=== PATIENT | male | born 1965 | race Caucasian/White ===

== ENCOUNTER 2016-04-04 23:31 | Emergency (ER) | payer MEDICARE, OTHER ==
[~2016-04-04] VITALS: Ht 182.9 cm; Wt 94.0 kg
[~2016-04-04 23:31] MED LIST: ALBU8.5H3 INH; IBUP800T25 PO; PRED20TA PO
[2016-04-05 00:23] VITALS: Ht 182.9 cm; Wt 94.0 kg
[2016-04-05] MEDS ORDERED: HYDROCODONE/APAP (5/325) TAB PO ONE (01:30)
[2016-04-05 01:56] LABS: URINE BILIRUBIN (Dip) NEGATIVE (NEGATIVE); URINE BLOOD (Dip) NEGATIVE (NEGATIVE); URINE COLOR LT. YELLOW (YELLOW); URINE GLUCOSE (Dip) >=1000 % (NEGATIVE); URINE KETONES (Dip) 40 (NEGATIVE); URINE LEUKOCYTE ESTERASE (Dip) NEGATIVE (NEGATIVE); URINE NITRITE (Dip) NEGATIVE (NEGATIVE); URINE UROBILINOGEN (Dip) 0.2 E.U./dL (0.1-1.0)
--- NOTE | 2016-04-05 01:58 | RADRPT ---
PROCEDURE: CT abdomen and pelvis without intravenous contrast. CLINICAL INDICATION: Pain. TECHNIQUE: CT of the abdomen/pelvis was performed utilizing axial images with reconstructions in s agittal and coronal planes. The administered radiation dose is CTDI 17 mGy, DLP 945 mGy-cm. COMPARISON: No pertinent prior examinations were submitted for comparison. FINDINGS: Visualized Chest: There is mild cardiomegaly with small pericardial effusion. Some coronary artery calcifications are noted. Gynecomastia is noted bilaterally. There is a 6 mm nodule within the rig ht lower lobe on image 11 of series 3 Abdomen: The spleen, pancreas, and adrenal glands are unremarkable. The liver is diffusely decreased in at tenuation, compatible with hepatic steatosis. Prior cholecystectomy is noted. The kidneys are without hydronephrosis. No definite urinary calculi are seen. There is no evidence of bowel obstruction. The appendix is normal. No intra-abdominal free air is seen. There is no evidence of intra-abdominal adenopathy or free fluid. Pelvis: There is no evidence of pelvic adenopathy of free fluid. The prostate and bladder are unremarkable. Osseous structures: Lumbar spondylotic changes are present with moderate to marked spinal canal narr owing at L4-5. IMPRESSION: No acute findings. No evidence of obstructive uropathy. Hepatic steatosis. RPTAT: HIKT .Loco Han MD, MD Date Time Electronically viewed and signed by .Loco Han MD, on 04/05/2016 01:58 .T/
[2016-04-05 02:00] LABS: ADD UMIC NO; URINE TOTAL PROTEIN (Dip) NEGATIVE (NEGATIVE)
--- NOTE | 2016-04-05 02:02 | ERD ---
ER Documentation Chief Complaint Date/Time DATE: 04/05/16 Chief Complaint Flank pain HPI The patient is a 50-year-old male with a history of diabetes mellitus, hypertension, COPD, schizophrenia, GERD, who presents to the Emergency Department with complaint of right flank pain that began tonight. The pain is aching in nature, and intermittent. He reports mild associated nausea, but no vomiting, diarrhea or constipation. No black or bloody stools. No dysuria, hematuria, urinary frequency, urgency, hesitancy. No testicular pain or swelling. No urethral discharge. No abdominal pain. He rates his current pain as 7/10, but notes that he has not yet taken any medication for pain relief. Denies recent falls, injury or trauma to the back. Denies fevers or chills. Denies bowel or bladder disturbances, urinary retention, or lower extremity weakness/numbness/paresthesias. ROS All systems reviewed and are negative except as per history of present illness. Medications Home Meds Active Scripts Ibuprofen* (Motrin*) 600 Mg Tab, 600 MG PO Q6, #20 TAB Prov:WINTER LOCKE PA-C 04/05/16 Ibuprofen* (Ibuprofen*) 800 Mg Tablet, 800 MG PO Q8, #30 TAB Prov:RAFFAELE BEARD DO 03/16/16 Prednisone* (Prednisone*) 20 Mg Tab, 20 MG PO DAILY, #4 TAB Prov:RAFFAELE BEARD DO 03/16/16 Albuterol Sulfate* (Proair HFA*) 8.5 Gm Hfa.aer.ad, 2 PUFF INH Q4, #1 INHALER Prov:RAFFAELE BEARD DO 03/16/16 Allergies Allergies: Coded Allergies: No Known Drug Allergies (Verified Allergy, Unknown, 02/11/14) PMhx/Soc History of Surgery: Yes (GALL BLADDER REMOVAL 03/2015) Anesthesia Reaction: No Hx Neurological Disorder: No Hx Respiratory Disorders: No Hx Cardiac Disorders: Yes (HTN) Hx Psychiatric Problems: Yes (SCHIZO-PARANOIA) Hx Miscellaneous Medical Probl: Yes (INSOMNIA, MYALGIA, HERNIATED DISK L4/L5, GERD) Hx Alcohol Use: Yes (occasional) Hx Substance Use: Yes (LSD, Heroin, cocaine, PCP, clemente dust, marijuana- quit, used marijuana 03/08) Hx Tobacco Use: Yes Smoking Status: Current every day smoker Physical Exam Vitals Vital Signs Date Time Temp Pulse Resp B/P Pulse Ox O2 Delivery O2 Flow Rate FiO2 04/05/16 03:27 96.2 89 18 142/87 97 Room Air 04/05/16 00:23 98.6 102 20 131/79 100 Physical Exam GENERAL: Well-developed, well-nourished, in no acute distress HEENT: Head is normocephalic, atraumatic. No scleral pallor or icterus. Pupils equal, round and reactive to light. Conjunctiva pink. Moist mucous membranes. NECK: Supple. No masses, no tenderness, no lymphadenopathy.Full range of motion. RESPIRATORY: Lungs are clear to auscultation bilaterally. Equal breath sounds. Normal expiratory effort. CARDIOVASCULAR: Regular rate and rhythm. No murmurs. GASTROINTESTINAL: Abdomen is soft, nontender, and nondistended. No guarding, no rebound tenderness. Normal bowel sounds. No abdominal bruits. No gross peritonitis. No masses or organomegaly. FLANK: No CVA tenderness, no mass or swelling. BACK: No midline tenderness. No paraspinal tenderness. EXTREMITIES: No clubbing, cyanosis, or edema. Normal skin perfusion. Full range of motion of both the upper and lower extremities bilaterally. Muscle tone is normal. No focal swelling or erythema. Distal pulses are palpable, 2+ bilaterally. Capillary refill is less than 2 seconds. NEUROLOGIC: The patient is alert, awake, and oriented x 3. No focal neurologic deficits. Speech is normal. INTEGUMENT: Skin is clean, dry and intact. No rashes, lesions or petechiae present. PSYCHIATRIC: Appropriate; Cooperative. Result Diagram: 04/05/1612404/05/16 012 Results 24 hrs Laboratory Tests Test 04/05/16 01:21 04/05/16 01:25 Urine Bilirubin NEGATIVE Urine Clarity CLEAR Urine Color LT. YELLOW Urine Glucose >=1000% Urine Hemoglobin NEGATIVE Urine Ketones 40 Urine Leukocyte Esterase NEGATIVE Urine Nitrite NEGATIVE Urine Specific [place] 1.015 Urine Total Protein NEGATIVE Urine Urobilinogen 0.2 E.U./dL Urine pH 6.0 Alanine Aminotransferase (ALT/SGPT) 25IU/L Albumin 4.2g/dl Albumin/Globulin Ratio 1.13 Alkaline Phosphatase 119IU/L Anion Gap 18 Aspartate Amino Transf (AST/SGOT) 20IU/L Basophils # 0.010^3/ul Basophils % 0.2% Blood Urea Nitrogen 14mg/dl Calcium Level 9.2mg/dl Carbon Dioxide Level 26mmol/L Chloride Level 97mmol/L Creatinine 0.62mg/dl Direct Bilirubin 0.00mg/dl Eosinophils # 0.110^3/ul Eosinophils % 1.7% Globulin 3.70g/dl Glucose Level 387mg/dl Hematocrit 48.6% Hemoglobin 16.7g/dl Indirect Bilirubin 0.5mg/dl Lipase 50U/L Lymphocytes # 2.010^3/ul Lymphocytes % 24.4% Mean Corpuscular Hemoglobin 30.3pg Mean Corpuscular Hemoglobin Concent 34.5g/dl Mean Corpuscular Volume 87.9fl Mean Platelet Volume 8.7fl Monocytes # 0.710^3/ul Monocytes % 8.1% Neutrophils # 5.510^3/ul Neutrophils % 65.6% Nucleated Red Blood Cells # 0.010^3/ul Nucleated Red Blood Cells % 0.0/100WBC Platelet Count 60055^3/UL Potassium Level 4.0mmol/L Red Blood Count 5.5310^6/ul Red Cell Distribution Width 13.6% Sodium Level 137mmol/L Total Bilirubin 0.5mg/dl Total Protein 7.9g/dl White Blood Count 8.410^3/ul Current Medications Medications (Trade) Dose Ordered Sig/Jayant Route PRN Reason Start Time Stop Time Status Last Admin Dose Admin Acetaminophen/ Hydrocodone Bitart ([place] (5/325)) 1 tab ONCE ONCE PO 04/05/16 01:30 04/05/16 01:31 DC 04/05/16 02:28 Procedures/MDM DIAGNOSTIC TESTS AND INTERPRETATION: PROCEDURE: CT abdomen and pelvis without intravenous contrast. CLINICAL INDICATION: Pain. TECHNIQUE: CT of the abdomen/pelvis was performed utilizing axial images with reconstructions in sagittal and coronal planes. The administered radiation dose is CTDI 17 mGy, DLP 945 mGy-cm. COMPARISON: No pertinent prior examinations were submitted for comparison. FINDINGS: Visualized Chest: There is mild cardiomegaly with small pericardial effusion. Some coronary artery calcifications are noted. Gynecomastia is noted bilaterally. There is a 6 mm nodule within the right lower lobe on image 11 of series 3 Abdomen: The spleen, pancreas, and adrenal glands are unremarkable. The liver is diffusely decreased in attenuation, compatible with hepatic steatosis. Prior cholecystectomy is noted. The kidneys are without hydronephrosis. No definite urinary calculi are seen. There is no evidence of bowel obstruction. The appendix is normal. No intra- abdominal free air is seen. There is no evidence of intra-abdominal adenopathy or free fluid. Pelvis: There is no evidence of pelvic adenopathy of free fluid. The prostate and bladder are unremarkable. Osseous structures: Lumbar spondylotic changes are present with moderate to marked spinal canal narrowing at L4-5. IMPRESSION: No acute findings. No evidence of obstructive uropathy. Hepatic steatosis. .Loco Han MD, MD Date Time Electronically viewed and signed by .Loco Han MD, MD on 04/05/2016 01:58 MEDICAL DECISION MAKING: This is a 50-year-old male presenting to the Emergency Department with complaint of right flank pain that began tonight. He had no lower abdominal tenderness to suggest appendicitis. Abdomen was soft, non-tender , non-distended, no indication of acute/surgical abdomen. No RUQ tenderness to suggest cholecystitis, choledocholithiasis, and the patient possibly has a history of cholecystectomy. Differential diagnosis includes, but is not limited to, AAA, nephrolithiasis, cystitis, pyelonephritis, biliary colic, pancreatitis , appendicitis, aortic dissection, mesenteric ischemia, hernia, perforated viscous, diverticulitis, bowel obstruction, cancer, torsion,shingles, retroperitoneal abscess/ hematoma. CBC reveals no leukocytosis, no significant anemia. No significant electrolyte abnormalities noted to require medication replacement. No transaminitis. Hyperglycemia noted, without DKA. Creatinine and BUN within normal limits, no prerenal azotemia or acute kidney injury. Signs and symptoms not consistent with urinary tract infection, and urinalysis no leukocyte esterase, no nitrites. I do not suspect pyelonephritis or cystitis. CT abdomen and pelvis reveals no acute findings, no evidence of obstructive uropathy. After rest and administration of oral fluids and [place], the patient reports no new complaints, and decreased pain. Upon review and interpretation of the patient's presentation, his symptoms are most consistent with right flank pain, uncertain etiology. At this time, the patient is in stable condition and therefore he can be discharged home with strict return precautions for signs of deteriorating or worsening condition. The patient is advised to follow up with their primary care provider within 2-3 days for reevaluation and further management, or return to the ER sooner for any worsening symptoms. I shared my medical decision making and plan with the patient at length and in great detail, and the patient verbally understands and agrees with the plan for further observation and care as an outpatient. At the time of discharge, all questions were answered. Departure Diagnosis: Primary Impression: Flank pain Condition: Stable Patient Instructions: Flank Pain, Uncertain Cause Additional Instructions: Call your primary care doctor TOMORROW for an appointment during the next 2-3 days.See the doctor sooner or return here if your condition worsens before your appointment time. WINTER LOCKE PA-C Apr 05, 2016 02:02
[2016-04-05 02:04] LABS: BASOPHILS % 0.2 % (0.0-2.0); EOSINOPHILS # 0.1 10^3/ul (0.0-0.5); EOSINOPHILS % 1.7 % (0.0-7.0); HEMATOCRIT 48.6 % (42.0-52.0); HEMOGLOBIN 16.7 g/dl (14.0-18.0); LYMPHOCYTES % 24.4 % (15.0-51.0); MEAN CORPUSCULAR HEMOGLOBIN 30.3 pg (29.0-33.0); MEAN CORPUSCULAR HGB CONC 34.5 g/dl (32.0-37.0); MEAN CORPUSCULAR VOLUME 87.9 fl (82.0-101.0); MEAN PLATELET VOLUME 8.7 fl (7.4-10.4); MONOCYTE # 0.7 10^3/ul (0.3-0.9); MONOCYTES % 8.1 % (0.0-11.0); NEUTROPHIL # 5.5 10^3/ul (1.6-7.5); NEUTROPHILS % 65.6 % (39.0-77.0); PLATELET COUNT 216 10^3/UL (140-440); RED BLOOD COUNT 5.53 10^6/ul (4.70-6.10); RED CELL DISTRIBUTION WIDTH 13.6 % (11.5-14.5); UNCORRECTED WBC 8.4 10^3/ul (4.8-10.8); WHITE BLOOD COUNT 8.4 10^3/ul (4.8-10.8)
[2016-04-05 02:05] LABS: ALBUMIN 4.2 g/dl (3.3-4.9)
[2016-04-05 02:07] LABS: CREATININE 0.62 mg/dl (0.61-1.24)
[2016-04-05 02:08] LABS: ALBUMIN/GLOBULIN RATIO 1.13; BILIRUBIN,INDIRECT 0.5 mg/dl (0-1.1); BILIRUBIN,TOTAL 0.5 mg/dl (0.2-1.3); CALCIUM 9.2 mg/dl (8.4-10.2); TOTAL PROTEIN 7.9 g/dl (6.1-8.1)
[2016-04-05 02:14] LABS: CONDITION 1
[2016-04-05] MEDS ORDERED: IBUP-1542 PO (02:31)
[2016-04-05 03:27] VITALS: BP 142/87; PULSE 89; RESP 18; TEMP 96.2
== END 2016-04-05 03:27 | disposition home or self-care (01) ==
LOC: FTE 23:31
DX: R10.9 Unspecified abdominal pain (principal); I10 Essential (primary) hypertension; E11.9 Type 2 diabetes mellitus without complications; F17.210 Nicotine dependence, cigarettes, uncomplicated
CPT/HCPCS: 36415; 74176; 80053; 81003; 83690; 85025; 87086

== ENCOUNTER 2016-07-03 04:54 | Emergency (ER) | payer MEDICARE, OTHER ==
[~2016-07-03] VITALS: Ht 182.9 cm; Wt 101.0 kg
[~2016-07-03 04:54] MED LIST changes: +IBUP-1542 PO
[2016-07-03 05:00] VITALS: Ht 182.9 cm; Wt 101.0 kg
--- NOTE | 2016-07-03 05:29 | ERD ---
ER Documentation Chief Complaint Date/Time DATE: 07/03/16 TIME: 05:26 Chief Complaint ulcer on penile area, states "i have siphilis" HPI 50-year-old male presents in emergency department for complaints of a penile lesion, he has had it for the last 5 days. Patient states that he had been tested for syphilis and tested positive. Patient did not bring his results today. Patient does not have the results. Patient denies any pain on the penile area. Patient denies any on the lesion. Patient denies any penile discharge. Patient denies any new sexual partners. Patient denies any abdominal pain or cramping. Patient denies hematuria or dysuria. ROS All systems reviewed and are negative except as per history of present illness. Medications Home Meds Active Scripts Ibuprofen* (Motrin*) 600 Mg Tab, 600 MG PO Q6, #20 TAB Prov:WINTER LOCKE PA-C 04/05/16 Ibuprofen* (Ibuprofen*) 800 Mg Tablet, 800 MG PO Q8, #30 TAB Prov:RAFFAELE BEARD DO 03/16/16 Prednisone* (Prednisone*) 20 Mg Tab, 20 MG PO DAILY, #4 TAB Prov:RAFFAELE BEARD DO 03/16/16 Albuterol Sulfate* (Proair HFA*) 8.5 Gm Hfa.aer.ad, 2 PUFF INH Q4, #1 INHALER Prov:RAFFAELE BEARD DO 03/16/16 Allergies Allergies: Coded Allergies: No Known Drug Allergies (Verified Allergy, Unknown, 02/11/14) PMhx/Soc History of Surgery: Yes (GALL BLADDER REMOVAL 03/2015) Anesthesia Reaction: No Hx Neurological Disorder: No Hx Respiratory Disorders: No Hx Cardiac Disorders: Yes (HTN) Hx Psychiatric Problems: Yes (SCHIZO-PARANOIA) Hx Miscellaneous Medical Probl: Yes (INSOMNIA, MYALGIA, HERNIATED DISK L4/L5, GERD, DM) Hx Alcohol Use: Yes (occasional) Hx Substance Use: Yes (LSD, Heroin, cocaine, PCP, clemente dust, marijuana- quit, used marijuana 03/08) Hx Tobacco Use: Yes Smoking Status: Current every day smoker FmHx Family History: No coronary disease, No diabetes, No other Physical Exam Vitals Vital Signs Date Time Temp Pulse Resp B/P Pulse Ox O2 Delivery O2 Flow Rate FiO2 07/03/16 05:00 97.8 99 20 156/87 100 Physical Exam GENERAL: The patient is well developed and appropriate for usual state of health, in no apparent distress. CHEST: Clear to auscultation bilaterally. There are no rales, wheezes or rhonchi. HEART: Regular rate and rhythm. No murmurs, clicks, rubs or gallops. No S3 or S4. ABDOMEN: Soft, nontender and nondistended. Good bowel sounds. No rebound or guarding. No gross peritonitis. No gross organomegaly or masses. No Collier sign or McBurney point tenderness. BACK: No midline or flank tenderness. EXTREMITIES: Equal pulses bilaterally. There is no peripheral clubbing, cyanosis or edema. No focal swelling or erythema. Full range of motion. Grossly neurovascularly intact. NEURO: Alert and oriented. Cranial nerves 2-12 intact. Motor strength in all 4 extremities with 5/5 strength. Sensation grossly intact. Normal speech and gait. SKIN: There is no apparent rash or petechia. The skin is warm and dry. HEMATOLOGIC AND LYMPHATIC: There is no evidence of excessive bruising or lymphedema. No gross cervical, axillary, or inguinal lymphadenopathy. : Noted penile lesion, papular rash 0.5 cm, nontender on palpation. No penile discharge, no scrotal tenderness, scrotal redness, or scrotal swelling. Procedures/MDM Medical decision making: Patient symptoms of a penile lesion is nonspecific at this time. At this time, we don't have results of his syphilis, patient was advised to get results and can return here for possible treatment or see Public health. No symptoms of epididymitis, testicular torsion, balanitis, symptoms of any abscesses. Patient is advised to follow-up with primary doctor 2-3 days, request for results of syphilis testing. Patient was advised to return to emergency department for any worsening s/s Departure Diagnosis: Primary Impression: Penile lesion Condition: Stable Patient Instructions: Understanding STDs SAEED GALE NP Jul 03, 2016 05:29
== END 2016-07-03 05:38 | disposition home or self-care (01) ==
LOC: FTE 04:54
DX: N48.89 Other specified disorders of penis (principal); E11.9 Type 2 diabetes mellitus without complications; I10 Essential (primary) hypertension; F17.210 Nicotine dependence, cigarettes, uncomplicated
CPT/HCPCS: 99282

== ENCOUNTER 2016-09-05 22:35 | Emergency (ER) | payer MEDICARE, OTHER ==
[~2016-09-05] VITALS: Ht 154.9 cm; Wt 99.0 kg
[2016-09-05 22:40] VITALS: Ht 154.9 cm; Wt 99.0 kg
[2016-09-06 00:08] LABS: URINE BLOOD (Dip) POC Negative (NEGATIVE)
--- NOTE | 2016-09-06 00:22 | ERA ---
ER Documentation Chief Complaint Date/Time DATE: 09/06/16 TIME: 00:16 Chief Complaint left upper "stabbing' pain,vomited X1,denies diarrhea/constipation HPI This 51-year-old male patient reports burning with urination, reports a stinging sensation and meatus and glans penis. Patient reports history of syphilis status post treatment, patient was seen and treated July 03 here in the emergency department. Patient reports that he took full course of medication, reports that he is not sexually active, has not been sexually active since he contracted infection. Patient reports history of diabetes, states suboptimal control in that his blood glucose at home is over 300. Patient reports polydipsia, polyuria, and constipation. Patient denies any visible lesions on penis. Denies any ulcers, states the pain is inside his urethra. Patient denies discharge, hematuria, back pain or fever ROS All systems reviewed and are negative except as per history of present illness. Medications Home Meds Active Scripts Ibuprofen* (Motrin*) 600 Mg Tab, 600 MG PO Q6, #20 TAB Prov:WINTER LOCKE PA-C 04/05/16 Ibuprofen* (Ibuprofen*) 800 Mg Tablet, 800 MG PO Q8, #30 TAB Prov:RAFFAELE BEARD DO 03/16/16 Prednisone* (Prednisone*) 20 Mg Tab, 20 MG PO DAILY, #4 TAB Prov:RAFFAELE BEARD DO 03/16/16 Albuterol Sulfate* (Proair HFA*) 8.5 Gm Hfa.aer.ad, 2 PUFF INH Q4, #1 INHALER Prov:RAFFAELE BEARD DO 03/16/16 Allergies Allergies: Coded Allergies: No Known Drug Allergies (Verified Allergy, Unknown, 02/11/14) PMhx/Soc History of Surgery: Yes (GALL BLADDER REMOVAL 03/2015) Anesthesia Reaction: No Hx Neurological Disorder: No Hx Respiratory Disorders: No Hx Cardiac Disorders: Yes (HTN) Hx Psychiatric Problems: Yes (SCHIZO-PARANOIA) Hx Miscellaneous Medical Probl: Yes (INSOMNIA, MYALGIA, HERNIATED DISK L4/L5, GERD, DM) Hx Alcohol Use: Yes (occasional) Hx Substance Use: Yes (LSD, Heroin, cocaine, PCP, clemente dust, marijuana- quit, used marijuana 03/08) Hx Tobacco Use: Yes Smoking Status: Current every day smoker Physical Exam Vitals Vital Signs Date Time Temp Pulse Resp B/P Pulse Ox O2 Delivery O2 Flow Rate FiO2 09/05/16 22:40 97.9 97 18 124/84 96 Vitals stable, triage notes reviewed Physical Exam Const: No acute distress Head: Atraumatic Eyes: Normal Conjunctiva, PERRLA, EOMI ENT: Normal External Ears, Nose and Mouth. Neck: Full range of motion..~ No meningismus. Resp: Clear to auscultation bilaterally Cardio: Regular rate and rhythm, no murmurs Abd: Abdomen soft, nontender, nondistended Male genitalia Noted penile lesion, papular rash 0.5 cm, nontender on palpation. No penile discharge, no scrotal tenderness, scrotal redness, or scrotal swelling. Skin: Back: No midline or flank tenderness Ext: Neur: Awake and alert Psych: Histrionic, flat affect, keeps eyes closed for most of interview process Results 24 hrs Laboratory Tests Test 09/05/16 23:58 09/06/16 00:12 Bedside Glucose 195mg/dL Bedside Urine pH (LAB) 6.0 Bedside Urine Protein (LAB) 2+ Bedside Urine Glucose (UA) 0.50% Bedside Urine Ketones (LAB) 1+ Bedside Urine Blood Negative Bedside Urine Nitrite (LAB) Negative Bedside Urine Leukocyte Esterase (L Negative Procedures/MDM This 51-year-old male patient presenting to emergency department today with complaint of dysuria, patient states that he was tested for syphilis and he tested positive states that was 4 months ago and he is unsure if he was treated. Patient reports he believes he still has symptoms. Reports a stinging at his meatus, and dysuria. Patient denies that he is sexually active , and states that he has not been sexually active since diagnosis of syphilis. Patient denies any hematuria, reports that he is a diabetic with suboptimal control reports hyperglycemia. Patient has history of seasonal paranoia, is histrionic at present with flat affect, is compliant with all request. Urinary tract infection, hyperglycemia, considered. Urinalysis negative for evidence of leukocytosis, nitrates or microscopic hematuria, capillary blood glucose is 195. Case discussed with supervising physician Dr. Vega. Patient advised to return to [facility] clinic to have RPR redrawn. Teaching provided that particular test takes too long to get back. Remain abstinent, and follow-up with clinic for possible retreatment. Patient continues to report his entire history since , history is convoluted and changing unclear and difficult to follow. Without any acute source of infection, without any concern for bacteremia, septicemia, pyelonephritis, or DKA patient will be discharged home without prescription. I feel the patient is stable for discharge at this time. I have discussed results, examination findings, the treatment plan with the patient and family present prior to discharge. Indications for emergent reevaluation, side effects of medication were also discussed. All questions were answered. Patient verbalizes understanding and agrees with plan of care. Departure Diagnosis: Primary Impression: Dysuria Condition: Good Patient Instructions: Dysuria, Uncertain Cause (Child) AAKASH WAGONER Sep 06, 2016 00:22
== END 2016-09-06 01:33 | disposition home or self-care (01) ==
LOC: FTE 22:35
DX: R30.0 Dysuria (principal); I10 Essential (primary) hypertension; E11.9 Type 2 diabetes mellitus without complications; F17.210 Nicotine dependence, cigarettes, uncomplicated
CPT/HCPCS: 81003; 82962; 99282

== ENCOUNTER 2017-11-28 16:11 | Emergency (ER) | END 2017-11-28 18:04 | disposition home or self-care (01) ==